=== PATIENT | female | born 1955 | race Caucasian/White ===

== ENCOUNTER 2024-02-23 15:44 | Emergency (ER) | payer MEDICARE, OTHER ==
[~2024-02-23] VITALS: Ht 170.2 cm; Wt 48.2 kg
[2024-02-23 15:50] VITALS: BP 133/51; PULSE 74; RESP 16; TEMP 98; O2SAT 98
== END 2024-02-23 18:46 | disposition home or self-care (01) ==
LOC: ER 15:45
DX: M67.431 Ganglion, right wrist (principal); M79.641 Pain in right hand; Z88.6 Allergy status to analgesic agent; Z88.5 Allergy status to narcotic agent
CPT/HCPCS: 73130; 99283